=== PATIENT | female | born 1950 | race Caucasian/White ===

== ENCOUNTER → 2017-08-22 08:04 | Outpatient (CLI) | payer MEDICARE, OTHER, SELFPAY ==
[2017-08-22 08:09] LABS: Microscopic, Urine URINE MICROSCOPIC (MICROSCOPIC)
[2017-08-22 13:42] LABS: Basophils % 0.6 % (0.1-2.0); Eosinophils # 0.2 K/mm3 (0.0-0.4); Eosinophils % 4.9 % (0.1-12.0); Hematocrit 43.7 % (37.0-47.0); Hemoglobin 13.9 g/dL (12.2-16.2); Lymphocytes # 1.5 K/mm3 (0.7-4.5); Lymphocytes % 33.4 K/mm3 (10-50); Mean Corpuscular HGB Conc 31.8 g/dL (31.8-35.4); Mean Corpuscular Hemoglobin 31.9 pg (27.0-31.2); Mean Corpuscular Volume 100.2 fl (81-99); Mean Platelet Volume 8.4 fl (7.4-10.4); Monocytes # 0.3 K/mm3 (0.1-1.0); Monocytes % 6.1 % (1.7-9.3); Neutrophils # 2.4 K/mm3 (1.8-7.8); Neutrophils % 54.9 % (37.0-80.0); Platelet Count 259 K/mm3 (142-424); Red Blood Count 4.36 M/mm3 (4.20-5.40); Red Cell Distribution Width 12.9 % (11.5-17.5); White Blood Count 4.4 K/mm3 (4.8-10.8)
[2017-08-22 13:58] LABS: Appearance,Urine CLEAR (Clear); Bilirubin,Urine Negative (Negative); Blood, Urine Negative (Negative); Color,Urine YELLOW (Yellow); Glucose,Urine (UA) Negative (Negative); Ketones,Urine Negative (Negative); Leukocyte Esterase,Urine Negative (Negative); Nitrate,Urine Negative (Negative); PH,Urine 6.5 (5.0-8.5); Protein,Urine Negative (Negative); Specific Gravity, Urine <= 1.005 (1.005-1.030); Urobilinogen,Urine 0.2 EU/dl (0.2)
[2017-08-22 14:37] LABS: Alanine Aminotransferase 33 U/L (12-78); Albumin Level 3.8 gm/dL (3.4-5.0); Albumin/Globulin Ratio 1.2 (1.1-1.8); Alkaline Phosphatase 69 U/L (46-116); Anion Gap 13.6 mEq/L (5-15); Aspartate Amino Transferase 16 U/L (15-37); Bilirubin,Total 0.5 mg/dL (0.2-1.0); Blood Urea Nitrogen 11 mg/dL (7-18); Calcium 8.9 mg/dL (8.5-10.1); Carbon Dioxide 26 mmol/L (21.0-32.0); Chloride 101 mmol/L (98-107); Chol/HDL Ratio 2.1 (1-3.5); Cholesterol 228 mg/dL (140-200); Creatinine,Serum 0.71 mg/dL (0.55-1.02); Estimated Glomerular Filt Rate 82 ml/min (>60); GFR (African American) 100 ML/MIN (>60); Globulin 3.2 gm/dl (1.3-3.2); Glucose 87 mg/dL (74-106); HDL Cholesterol 108 mg/dL (29-89); LDL Cholesterol 109 mg/dL (0-130); Potassium 4.6 mmoL/L (3.5-5.1); Sodium 136 mmol/L (136-145); Thyroid Stimulating Hormone 1.65 uIU/ml (0.358-3.740); Triglycerides 54 mg/dL (30-200); VLDL Cholesterol 11 mg/dL (0-40)
[2017-08-22 15:09] LABS: Bacteria,Urine 1+ /lpf; RBC,Urine Occasional #/hpf (0-3); WBC,Urine Occasional #/hpf (0-3)
== END ==
PROVIDERS: PCP Family Medicine; Visit Provider Family Medicine
DX: I10 Essential (primary) hypertension (principal); R53.83 Other fatigue; E78.5 Hyperlipidemia, unspecified; R35.1 Nocturia
CPT/HCPCS: 36415; 80053; 80061; 81001; 84439; 84443; 85025

== ENCOUNTER → 2017-10-22 17:05 | Outpatient (CLI) | payer MEDICARE, OTHER, SELFPAY ==
--- NOTE | 2017-10-22 13:31 | MM_ITS ---
MM Dig SC mamm unilat RT CAD CAD Screening ORDERING PHYSICIAN : Abdifatah Hernadez MD PATIENT AGE: 67 years GENDER: Female COMPARISON: Previous mammograms: August 2016, 2015, July 2014, 2013, 2012, 2011. June 2010 INDICATION: Screening right mammogram. Left mastectomy May years ago. Uses est ring No new complaints. Noncontributory family history TECHNIQUE: Standard CC and MLO images right breast with additional axillary cc view and right MLO inferior breast for IMf image R2 CAD reviewed. --FINDINGS: RIGHT BREAST:---- Right breast there is a small 6 mm round density seen at the lateral retroareolar region ongoing over multiple years of studies seems to fluctuate from study to study of same area was present in 2013. As well as evident on 2011.. Thus this long-term presence, and lack of progression supporting benign nature and can be followed Remainder breast unremarkable. A few stable small axillary lymph nodes. Minimal vascular calcification IMPRESSION: No significant new findings. Follow-up in one year will be important and should be emphasized this patient Small smooth round 5X 6 mm density at the lateral/inferior retroareolar region again noted & stable since studies dating back to 2013, 2011. Can be followed given this long-term nature BI-RADS Category: 2 Benign Finding(s) RECOMMENDED FOLLOW-UP: 1YR - 1 YEAR FOLLOW-UP (A letter has been sent to the patient regarding results of the study.)
== END ==
PROVIDERS: Family Provider Family Medicine; PCP Family Medicine; Visit Provider Nurse Practitioner Obstetrics & Gynecology
DX: Z12.31 Encounter for screening mammogram for malignant neoplasm of breast (principal)
CPT/HCPCS: 77067

== ENCOUNTER → 2019-03-12 10:40 | Outpatient (CLI) | payer MEDICARE, OTHER, SELFPAY ==
--- NOTE | 2019-03-12 10:42 | MM_ITS ---
PROCEDURE: MM DIG SC MAMM UNILAT RT CAD CLINICAL INDICATION: h/o lt breast cancer, screening rt There has been a previous left mastectomy, patient has no current complaints involving the right breast COMPARISON: DMSUR DIG MAMM-SCREENING UNI-RT from 09/01/2015 DMSUR DIG MAMM-SCREEN UNI-RT W/CAD from 09/13/2016 SCUNIRT MM Dig SC mamm unilat RT CAD from 10/22/2017 TECHNIQUE: Standard CC and MLO images were obtained. R2 CAD reviewed. FINDINGS: Scattered fibroglandular densities are seen stable and basically unchanged from previous studies. There is mild arterial calcification as noted previously. There is a stable small round density just deep to the nipple right breast. There is no suspicious lesion and no suspicious microcalcifications. IMPRESSION: Stable exam with no suspicious lesions seen BI-RAD Category: 2 Benign Finding(s) FOLLOW-UP: 1YR 1 Year Follow-up (A letter has been sent to the patient regarding results of the study.) Dictated by: Dr. Anand Miller MD 03/16/2019 17:[address] Anand Miller MD in [place] 03/16/2019 17:35
== END ==
PROVIDERS: PCP Family Medicine; Visit Provider Nurse Practitioner Obstetrics & Gynecology
DX: Z12.31 Encounter for screening mammogram for malignant neoplasm of breast (principal); Z85.3 Personal history of malignant neoplasm of breast
CPT/HCPCS: 77067

== ENCOUNTER → 2019-04-14 10:05 | Outpatient (POV) | payer MEDICARE, OTHER, SELFPAY | PROVIDERS: Visit Provider Dermatology | DX: Z00.00 Encounter for general adult medical examination without abnormal findings (principal) ==

== ENCOUNTER → 2020-02-17 17:36 | Outpatient (CLI) | payer MEDICARE, OTHER, SELFPAY ==
[2020-02-19 13:14] LABS: Covid-19 Nasal PCR Sendout Lex NOT DETECTED
== END ==
PROVIDERS: PCP Family Medicine; Visit Provider Nurse Practitioner Family
DX: Z03.818 Encounter for observation for suspected exposure to other biological agents ruled out (principal)
CPT/HCPCS: U0004

== ENCOUNTER → 2020-03-14 08:16 | Outpatient (CLI) | payer MEDICARE, OTHER, SELFPAY ==
--- NOTE | 2020-03-14 08:16 | MM_ITS ---
PROCEDURE: MM DIG SC MAMM UNILAT RT CAD from 03/14/2020 US US BREAST RT COMPLETE from 03/14/2020 Referring Doctor: Abdifatah Hernadez Patient Age:69Y CLINICAL INDICATION: screening xmg in high risk patient Left mastectomy for left breast cancer No new complaints.; patient with est ring Family history sister with breast cancer COMPARISON: MG DMSUR DIG MAMM-SCREENING UNI-RT from 07/24/2013 MG DMSUR DIG MAMM-SCREENING UNI-RT from 08/10/2014 MG DMSUR DIG MAMM-SCREENING UNI-RT from 09/01/2015 MG DMSUR DIG MAMM-SCREEN UNI-RT W/CAD from 09/13/2016 MG SCUNIRT MM Dig SC mamm unilat RT CAD from 10/22/2017 MG MM DIG SC MAMM UNILAT RT CAD from 03/12/2019 US US BREAST RT COMPLETE from 03/14/2020 TECHNIQUE: Standard CC and MLO images were obtained. R2 CAD reviewed. Bilateral digital breast tomosynthesis included. FINDINGS: Today's right mammogram studies and right breast ultrasound are reviewed together: RIGHT MAMMOGRAM: On the mammogram images there is a round 7.5 mm well-marginated density retroareolar region, slightly lateralaspect retroareolar region. This corresponds with a benign appearing cyst on subsequent ultrasound which is been seen on previous studies No additional areas are seen elsewhere at the right breast. Remainder of the right breast appear stable RIGHT BREAST ULTRASOUND: With axillary survey 6.9 mm x 5.2 mm benign-appearing well-marginated cyst at 9-10 o'clock which would corresponds to the area seen on the mammogram images.. No areas of concern otherwise at the right breast. Benign-appearing axillary lymph nodes noted IMPRESSION: No new areas of significant concern right breast.. Small benign cyst retroareolar region Today's right breast ultrasound reveals a small cyst at the lateral retroareolar region which would correspond with round density lateral retroareolar region today's right mammogram this is seen on previous study Follow-up 1 year/February 2021 recommended and encouraged BI-RAD Category: 2 Benign Finding(s) FOLLOW-UP: 1YR 1 Year Follow-up (A letter has been sent to the patient regarding results of the study.) Dictated by: Toby Gregory MD 03/23/2020 09:50 Toby Gregory MD in [place] 03/23/2020 09:50
== END ==
PROVIDERS: PCP Family Medicine; Visit Provider Nurse Practitioner Obstetrics & Gynecology
DX: Z12.31 Encounter for screening mammogram for malignant neoplasm of breast (principal); Z85.3 Personal history of malignant neoplasm of breast
CPT/HCPCS: 76641; 77063; 77067

== ENCOUNTER 2020-04-13 09:47 | Emergency (ER) | payer MEDICARE, OTHER, SELFPAY ==
--- NOTE | 2020-04-13 09:50 | HMH.EDUTC ---
[facility] [place] Disposition Clinical Impression: Exposure to COVID-19 virus Disposition: Home, Self-Care Condition on Discharge: Good Instructions: Preventing the Spread of Coronavirus Discharge Instructions Additional Instructions: Drink plenty of fluids. Take tylenol for pain or fever. Follow up with your regular doctor. GO TO THE ER FOR ANY WORSENING SYMPTOMS Referrals: Jason Ferrer [Primary Care Provider] - Time of Disposition: 10:07 Medical Decision Making - Medical Records Medical records reviewed: No: I reviewed the patient's medical records. - Erwin Inquiry Pt receiving controlled substance: No Vital Signs: 04/13/20 09:58 04/13/20 10:08 Temperature 97.7 F 97.7 F Temperature Source Oral Pulse Rate 72 Pulse Rate [Right Brachial] 72 Respiratory Rate 21 21 Blood Pressure 138/92 H Blood Pressure [Right Arm] 138/92 H Blood Pressure Mean [Right Arm] 107 Blood Pressure Source [Right Arm] Automatic Cuff Blood Pressure Position [Right Arm] Sitting 02 Sat by Pulse Oximetry 97 Oxygen Delivery Method Room Air [facility] [place] HPI - General Stated complaint: wants tanikaid test Time Seen by Provider: 04/13/20 09:50 - History of Present Illness Provider Complaint: She states that she traveled to see her sister and got home yesterday. She has been having a mild headache. She denies any other symptoms. - Related Data Home Medications Medication Instructions Recorded Confirmed Losartan Potassium [Cozaar 100mg 100 mg PO DAILY 04/13/20 04/13/20 Tablets] Allergies Allergy/AdvReac Type Severity Reaction Status Date / Time amoxicillin [From Augmentin] Allergy Verified 04/13/20 10:03 clarithromycin Allergy Verified 04/13/20 10:03 clavulanic acid Allergy Verified 04/13/20 10:03 [From Augmentin] Penicillins Allergy Verified 04/13/20 10:03 [facility] History - Hepatitis A Screen Attestation statement:: This patient has been screened for Hepatitis A risk factors. I have reviewed the patient's past medical history: Yes Medical History: Reports:: Hypertension Laterality Cases: Left: Mastectomy Other Surgeries: Yes: Appendectomy Amputation: No Fractures: No Comment: thumb joints replace on both hands - Social History Smoking Status: Never smoker Alcohol Intake: current Alcohol Intake Frequency:: holidays/special occasions only Substance Use Type: denies use Occupational Status: retired Comment: [employer], [employer] ROS Obtained: Yes All systems reviewed & no additional complaints - Constitutional Constitutional: Denies chills, Denies fever(s) - Eyes Eyes: Denies blurry vision, Denies eye discharge - ENT Ears, Nose, Mouth, and Throat: Denies dizziness, Denies otalgia, Denies sore throat - Cardiovascular Cardiovascular: Denies chest pain - Respiratory Respiratory: No chest congestion, No cough - Gastrointestinal Gastrointestingal: Denies: abdominal pain, diarrhea, nausea, vomiting Physical Exam - General General appearance: alert, in no apparent distress - Head Head exam: atraumatic, normocephalic, normal inspection - Eye Eye exam: Present: normal appearance, PERRL, EOMI - ENT ENT exam: Present: normal exam, normal oropharynx, mucous membranes moist, TM's normal bilaterally, normal external ear exam - Neck Neck exam: Present: normal inspection, full ROM, trachea midline. Absent: meningismus, lymphadenopathy - Chest Chest inspection: Present: normal inspection, symmetric chest wall rise. Absent: tenderness - Respiratory Respiratory exam: Present: normal lung sounds bilaterally. Absent: respiratory distress - Cardiovascular Cardiovascular exam: Present: regular rate, normal rhythm. Absent: JVD - Abdominal Exam Abdominal exam: Present: soft, normal bowel sounds. Absent: distention, tenderness, guarding - Extremities Exam Extremities exam: Present: normal inspection, full ROM, normal capillary refill. Absent: calf tenderness - Back Exa
[2020-04-13 09:58] VITALS: BP 138/92; PULSE 72; RESP 21; TEMP 36.5; O2SAT 97; BMI 25.6
[2020-04-13 10:08] VITALS: BP 138/92; PULSE 72; RESP 21; TEMP 36.5; O2SAT 97
[2020-04-13 19:45] LABS: Covid-19 Nasal PCR Sendout Lex NOT DETECTED
== END 2020-04-13 10:10 | disposition home or self-care (01) ==
PROVIDERS: Emergency Provider Nurse Practitioner Family; PCP Family Medicine
DX: Z20.828 Contact with and (suspected) exposure to other viral communicable diseases (principal)
CPT/HCPCS: 99201; U0004

== ENCOUNTER 2020-04-22 09:36 | Emergency (ER) | payer MEDICARE, OTHER, SELFPAY ==
[2020-04-22 09:45] VITALS: BP 154/94; PULSE 62; RESP 19; TEMP 36.7; O2SAT 98; BMI 25.6
--- NOTE | 2020-04-22 10:14 | HMH.EDUTC ---
[facility] [place] Clinical Impression: Exposure to COVID-19 virus, Viral syndrome Disposition: Home, Self-Care Condition on Discharge: Good Instructions: DI for Viral Syndrome, Preventing the Spread of Coronavirus Discharge Instructions Additional Instructions: Drink plenty of fluids. Take tylenol for pain or fever. Take the medications as directed. Follow up with your regular doctor. GO TO THE ER FOR ANY WORSENING SYMPTOMS Prescriptions: Azithromycin [Z-Surya 250mg Tab*] 250 mg PO UD DOSE PK #6 tab Transmission Status: Received by [facility] Referrals: Jason Ferrer [Primary Care Provider] - Time of Disposition: 10:22 Medical Decision Making - Medical Records Medical records reviewed: No: I reviewed the patient's medical records. - Erwin Inquiry Pt receiving controlled substance: No Vital Signs: 04/22/20 09:45 04/22/20 10:28 Temperature 98.0 F 98.0 F Temperature Source Oral Pulse Rate 62 Pulse Rate [Right Brachial] 62 Respiratory Rate 19 19 Blood Pressure 154/94 H Blood Pressure [Right Arm] 154/94 H Blood Pressure Mean [Right Arm] 114 Blood Pressure Source [Right Arm] Automatic Cuff Blood Pressure Position [Right Arm] Sitting 02 Sat by Pulse Oximetry 98 Oxygen Delivery Method Room Air Orders (Tests/Meds): ORDERS Category Date Time Status Covid-19 Nasal PCR Sendout [place] Stat Lab 04/22/20 09:50 Received [facility] [place] - General Stated complaint: covid exposure, symptomatic Time Seen by Provider: 04/22/20 09:50 Mode of Arrival: Ambulatory Source of Information: Patient Limitations: No Limitations Description of Symptoms (Recalled from Triage Doc. by RN): PATIENT REQUESTING COVID TEST D/T EXPOSURE; C/O COUGH AND SOA X 2 DAYS HEENT Symptoms (Recalled from RN notes): No Resp Symptoms (Recalled from RN notes): Yes Skin Symptoms (Recalled from RN notes): No MS Symptoms (Recalled from RN notes): No Functional Status (Recalled from RN notes): WNL - History of Present Illness Provider Complaint: She c/o this being the 2nd day that she has felt bad. Her partner was tested for covid and it came back positive yesterday. She has been chilling, running a temp up to just above 99, loss of appetite and a general feeling of malaise. - Related Data Home Medications Medication Instructions Recorded Confirmed Losartan Potassium [Cozaar 100mg 100 mg PO DAILY 04/13/20 04/22/20 Tablets] Previous Rx's Medication Instructions Recorded Azithromycin [Z-Surya 250mg Tab*] 250 mg PO UD DOSE PK #6 tab 04/22/20 Allergies Allergy/AdvReac Type Severity Reaction Status Date / Time amoxicillin [From Augmentin] Allergy Verified 04/13/20 10:03 clarithromycin Allergy Verified 04/13/20 10:03 clavulanic acid Allergy Verified 04/13/20 10:03 [From Augmentin] Penicillins Allergy Verified 04/13/20 10:03 - Worker's Comp Is this a Worker's Comp case?: No H History - Hepatitis A Screen Drug use history?: No High risk sexual behaviors?: No History of sexually transmitted infection?: No Currently employed?: No Childcare worker?: No Do you have indoor plumbing?: Yes Do you have electricity?: Yes Attestation statement:: This patient has been screened for Hepatitis A risk factors. I have reviewed the patient's past medical history: Yes Medical History: Reports:: Hypertension Laterality Cases: Left: Mastectomy Other Surgeries: Yes: Appendectomy Amputation: No Fractures: No Comment: thumb joints replace on both hands - Social History Smoking Status: Never smoker Alcohol Intake: never Alcohol Intake Frequency:: holidays/special occasions only Substance Use Type: denies use Occupational Status: other Comment: [employer], [employer] ROS Obtained: Yes All systems reviewed & no additional complaints - Constitutional Constitutional: Reports chills, Reports fever(s), Reports poor appetite, Reports malaise - Eyes Eyes: Denies eye discharge - ENT E
[2020-04-22 10:28] VITALS: BP 154/94; PULSE 62; RESP 19; TEMP 36.7; O2SAT 98
[2020-04-23 15:52] LABS: Covid-19 Nasal PCR Sendout Lex Positive
--- NOTE | 2020-04-23 16:01 | PC.NURSE ---
Pt called 04/23/2020 at 1555 and given Covid-19 results. Positive.
== END 2020-04-22 10:30 | disposition home or self-care (01) ==
PROVIDERS: Emergency Provider Nurse Practitioner Family; PCP Family Medicine
DX: U07.1 COVID-19 (principal)
CPT/HCPCS: G0463; 99201; U0004

== ENCOUNTER → 2021-01-31 10:27 | Outpatient (CLI) | payer MEDICARE, OTHER, SELFPAY | PROVIDERS: Visit Provider Family Medicine | DX: Z11.9 Encounter for screening for infectious and parasitic diseases, unspecified (principal) | CPT/HCPCS: 36415; 86618 ==

== ENCOUNTER → 2021-03-21 10:19 | Outpatient (CLI) | payer MEDICARE, OTHER, SELFPAY ==
--- NOTE | 2021-03-21 10:19 | MM_ITS ---
PROCEDURE: MM DIG SC MAMM UNILAT RT CAD Digital Breast Tomosynthesis Included CLINICAL INDICATION: screening mammogram/ h/o lt breast cancer COMPARISON: MG SCUNIRT MM Dig SC mamm unilat RT CAD from 10/22/2017 MG MM DIG SC MAMM UNILAT RT CAD from 03/12/2019 US BREAST RT COMPLETE from 03/14/2020 MG MM DIG SC MAMM UNILAT RT CAD from 03/14/2020 TECHNIQUE: Standard CC and MLO images and 3D Tomosynthesis was obtained. R2 CAD reviewed. FINDINGS: There are scattered areas of fibroglandular density The patient has had prior left mastectomy. There are benign-appearing calcifications of the right breast. A well-circumscribed 8 mm nodule is present in the retroareolar region which is not significantly changed which was confirmed to be a cyst on a previous ultrasound. There is a small nodule along the anterior aspect of this cyst measuring approximately 2 mm and is also not significantly changed. No suspicious appearing mass, malignant-appearing microcalcification, architectural distortion, or skin thickening. IMPRESSION: Benign findings. No change with no evidence of malignancy. BI-RAD Category: 2 Benign Finding FOLLOW-UP: 1 YR 1 Year Follow-up (A letter has been sent to the patient regarding results of the study.) Dictated by: Jarvis Calderón MD 03/31/2021 11:27 Jarvis Calderón MD in [place] 03/31/2021 11:27
== END ==
PROVIDERS: PCP Family Medicine; Visit Provider Obstetrics & Gynecology
DX: Z12.31 Encounter for screening mammogram for malignant neoplasm of breast (principal)
CPT/HCPCS: 77063; 77067

== ENCOUNTER → 2021-11-07 09:59 | Outpatient (POV) | payer MEDICARE, OTHER, SELFPAY | PROVIDERS: Visit Provider Dermatology | DX: Z00.00 Encounter for general adult medical examination without abnormal findings (principal) ==

== ENCOUNTER 2021-12-23 10:07 | Emergency (ER) | payer MEDICARE, OTHER, SELFPAY ==
[2021-12-23 11:15] VITALS: BP 164/86; PULSE 65; RESP 18; TEMP 37.2; O2SAT 98; BMI 26.8
--- NOTE | 2021-12-23 11:30 | HMH.EDUTC ---
[facility] [place]ression: Sinusitis Qualifiers: Sinusitis location: maxillary Chronicity: acute Recurrence: non-recurrent Qualified Code(s): J01.00 - Acute maxillary sinusitis, unspecified Conjunctivitis Qualifiers: Conjunctivitis type: acute Acute conjunctivitis type: bacterial Laterality: bilateral Qualified Code(s): H10.33 - Unspecified acute conjunctivitis, bilateral Disposition: Home, Self-Care Condition on Discharge: Good Instructions: DI for Conjunctivitis Additional Instructions: Take all meds as prescribed until gone Follow up with PCP if not improving Prescriptions: Ofloxacin [Ocuflox 0.3% OPHTH drops 5mL] 1 drp OP DIRECTED 7 Days #1 ml Transmission Status: [facility]ending [facility] Cefdinir [Omnicef 300mg Capsule] 300 mg PO BID #20 cap Transmission Status: Pending to [facility] Referrals: Jason Ferrer [Primary Care Provider] - Time of Disposition: 11:47 Medical Decision Making - Erwin Inquiry Pt receiving controlled substance: No Vital Signs: 12/23/21 11:15 Temperature 99.0 F Temperature Source Oral Pulse Rate [Right Brachial] 65 Respiratory Rate 18 Blood Pressure [Right Arm] 164/86 H Blood Pressure Mean [Right Arm] 112 Blood Pressure Source [Right Arm] Automatic Cuff Blood Pressure Position [Right Arm] Sitting 02 Sat by Pulse Oximetry 98 Oxygen Delivery Method Room Air - Lab Data Lab results reviewed: Yes: I reviewed the patient's lab results. Orders (Tests/Meds): ORDERS Category Date Time Status Strep Scrn Group A (Rapid) Stat Lab 12/23/21 11:20 [place] [facility] [place] - General Stated complaint: eye drainage, redness Time Seen by Provider: 12/23/21 11:30 Mode of Arrival: Ambulatory Source of Information: Patient Limitations: No Limitations Description of Symptoms (Recalled from Triage Doc. by RN): PATIENT C/O REDNESS AND DRAINAGE TO BILATERAL EYES, SORE THORAT, AND HEADACHE X 2 DAYS HEENT Symptoms (Recalled from RN notes): Yes Resp Symptoms (Recalled from RN notes): No Skin Symptoms (Recalled from RN notes): No MS Symptoms (Recalled from RN notes): No Functional Status (Recalled from RN notes): WNL - History of Present Illness Provider Complaint: Sore throat, headache, redness to bilateral eyes X 3-4 days. Low grade fever. Eyes have been irritated, draining. No pain or blurry vision. Mild rhinorhea. No cough. No vomiting or diarrhea. No rash. COVID test negative. Onset (ago): day(s) (4) Location: head, face Severity: moderate Consistency: constant Relieving factors: none Exacerbating factors: none Associated symptoms: headaches Treatments prior to arrival: none - Related Data Home Medications Medication Instructions Recorded Confirmed Losartan Potassium [Cozaar 100mg 100 mg PO DAILY 04/13/20 03/31/21 Tablets] Previous Rx's Medication Instructions Recorded Cefdinir [Omnicef 300mg Capsule] 300 mg PO BID #20 cap 12/23/21 Ofloxacin [Ocuflox 0.3% OPHTH 1 drp OP DIRECTED 7 Days #1 ml 12/23/21 drops 5mL] Allergies Allergy/AdvReac Type Severity Reaction Status Date / Time amoxicillin [From Augmentin] Allergy Verified 03/31/21 11:09 clarithromycin Allergy Verified 03/31/21 11:09 clavulanic acid Allergy Verified 03/31/21 11:09 [From Augmentin] Penicillins Allergy Verified 03/31/21 11:09 - Worker's Comp Is this a Worker's Comp case?: No [facility] History - Hepatitis A Screen Attestation statement:: This patient has been screened for Hepatitis A risk factors. I have reviewed the patient's past medical history: Yes Medical History: Reports:: Hypertension Laterality Cases: Left: Mastectomy Other Surgeries: Yes: Appendectomy Amputation: No Fractures: No Comment: thumb joints replace on both hands - Social History Smoking Status: Never smoker Alcohol Intake: never Alcohol Intake Frequency:: holidays/special occasions only Substance Use Type: denies use Occupational Status: ot
[2021-12-23 11:55] VITALS: BP 164/86; PULSE 65; RESP 18; TEMP 37.2; O2SAT 98
[2021-12-23 11:59] LABS: Strep Scrn Group A (Rapid) Negative (Negative)
== END 2021-12-23 11:58 | disposition home or self-care (01) ==
PROVIDERS: Emergency Provider Physician Assistant; PCP Family Medicine
DX: J01.01 Acute recurrent maxillary sinusitis (principal); H10.33 Unspecified acute conjunctivitis, bilateral; R07.0 Pain in throat; R51.9 Headache, unspecified; R50.9 Fever, unspecified; H53.143 Visual discomfort, bilateral; R09.81 Nasal congestion; H57.89 Other specified disorders of eye and adnexa; Z85.3 Personal history of malignant neoplasm of breast; I10 Essential (primary) hypertension
CPT/HCPCS: 87430; 99212; G0463

== ENCOUNTER → 2022-04-03 10:38 | Outpatient (CLI) | payer MEDICARE, OTHER, SELFPAY ==
--- NOTE | 2022-04-03 10:38 | MM_ITS ---
PROCEDURE INFORMATION: Exam: MG Right Screening 3D Mammography Exam date and time: 04/03/2022 10:46 AM Age: 71 years old Clinical indication: Screening. Personal history of left breast cancer, status post mastectomy with reconstruction. TECHNIQUE: Imaging protocol: Right Screening tomosynthesis and 2D mammography including computer-aided detection (CAD) when performed. COMPARISON: 1. MG MM DIG SC MAMM UNILAT RT CAD 03/21/2021 10:21 AM 2. MG MM DIG SC MAMM UNILAT RT CAD 03/14/2020 8:28 AM 3. MG MM DIG SC MAMM UNILAT RT CAD 03/12/2019 10:57 AM 4. MG SCUNIRT MM Dig SC mamm unilat RT CAD 10/22/2017 5:17 PM FINDINGS: MAMMOGRAPHY: Breast composition: There are scattered areas of fibroglandular density. Mass: No suspicious mass Architectural distortion: None. Calcifications: No suspicious calcifications. Asymmetric density: None. Skin thickening: None. Axillary adenopathy: None. IMPRESSION: No mammographic evidence of malignancy. Annual screening is recommended unless otherwise clinically indicated. ASSESSMENT: BI-RADS Category 1: Negative
== END ==
PROVIDERS: PCP Family Medicine; Visit Provider Obstetrics & Gynecology
DX: Z12.31 Encounter for screening mammogram for malignant neoplasm of breast (principal)
CPT/HCPCS: 77063; 77067

== ENCOUNTER 2024-08-05 15:34 | Outpatient (CLI) | payer MEDICARE, OTHER, SELFPAY ==
--- NOTE | 2024-08-05 15:37 | MM_ITS ---
PROCEDURE INFORMATION: Exam: MG Right Screening 3D Mammography Exam date and time: 08/05/2024 3:44 PM Age: 74 years old Clinical indication: Screening mammogram TECHNIQUE: Imaging protocol: Right Screening tomosynthesis and 2D mammography including computer-aided detection (CAD) when performed. COMPARISON: 1. MG MM DIG SC MAMM UNILAT RT CAD 04/03/2022 10:46 AM 2. MG MM DIG SC MAMM UNILAT RT CAD 03/21/2021 10:21 AM 3. MG MM DIG SC MAMM UNILAT RT CAD 03/14/2020 8:28 AM 4. MG MM DIG SC MAMM UNILAT RT CAD 03/12/2019 10:57 AM FINDINGS: MAMMOGRAPHY: Breast composition: There are scattered areas of fibroglandular density. Mass: Stable benign-appearing nodule is present in the right breast. No new or morphologically suspicious nodule has developed to suggest malignancy. Architectural distortion: No new or suspicious architectural distortion. Calcifications: No new or suspicious calcifications are present Asymmetric density: No new or suspicious asymmetric density is present Skin thickening: None. Axillary adenopathy: None. IMPRESSION: No mammographic evidence of malignancy. Recommend annual screening mammography unless otherwise clinically indicated. ASSESSMENT: BI-RADS category 2: Benign.
== END 2024-08-05 23:59 | disposition home or self-care (01) ==
LOC: RAD 15:35
PROVIDERS: PCP Family Medicine; Visit Provider Internal Medicine
DX: Z12.31 Encounter for screening mammogram for malignant neoplasm of breast (principal); Z85.3 Personal history of malignant neoplasm of breast
CPT/HCPCS: 77063; 77067

== ENCOUNTER 2025-06-11 13:00 | Outpatient (CLI) | payer MEDICARE, OTHER, SELFPAY ==
--- NOTE | 2025-06-11 13:03 | XR_ITS ---
FINAL REPORT TECHNIQUE: 2 view chest CLINICAL HISTORY: chest congestion COMPARISON: None FINDINGS: CHEST 2 VIEWS No acute pulmonary density is evident. There is no evidence of effusion or other pleural disease. The mediastinum has a normal appearance. The cardiac silhouette is unremarkable. IMPRESSION: Unremarkable chest exam. Reviewed, Interpreted and Dictated by Miguel Angel Ayoub MD Transcribed by Valentina Osorio Authenticated and [facility]
--- OUTSIDE RECORDS SUMMARY | 2025-06-11 13:04 | XMS_ITS | Clinical Summary ---
Author Organization [facility] Address [address] [place] [address] Care Team Providers Care Enthone Solder Stripper Name Role Phone Kayden Ferrer MD Primary Care Provider [phone] Allergies Active Allergy Reactions Criticality Noted Date Comments Amoxicillin-Pot Clavulanate 12/15/19 17 BP drop, Flushing Clarithromycin 12/14/2016 Sick to stomach Clavulanic Acid Hives 04/03/2022 Penicillins Hives 04/03/2022 Medications Calcium Carb-Cholecalcif liane (CALCIUM+D3 PO) Take 1 tablet by mouth Daily. Active [place] 3-6-9 Fatty Acids (OMEGA-3-6-9 PO) Take 1 tablet by mouth Daily. Active amLODIPine (NORVASC) 5 MG tablet Take 1 tablet by mouth Daily. 90 tablet 3 5 Active albuterol sulfate HFA 108 (90 Base) MCG/ACT inhalerIndicatio ns:Mild intermittent asthma without complication Inhale 2 puffs Every 4 (Four) Hours As Needed for Shortness of Air or Wheezing. 18 g 1 5 Active triamcinolone (KENALOG) 0.1 % creamIndications :Pruritic dermatosis of scalp Apply 1 Application topically to the appropriate area as directed 2 (Two) Times a Day. 60 g 1 5 Active losartan (COZAAR) 100 MG tablet Take 1 tablet once a day for blood pressure 90 tablet 1 5 Active Active Problems Problem Noted Date Diagnosed Date Medicare annual wellness visit, subsequent 11/17 Assessment & Plan (11/17/2024 12:16 PM EDT): Subcutaneous nodule 11/17/2024 Assessment & Plan (11/17/2024 12:16 PM EDT): Nonspecific 1 cm mobile nontender subcutaneous nodule in her left occiput with some overlying pruritus. Likely represents small lipoma or possibly sebaceous cyst. Observation recommended unless becomes enlarged. Pruritic dermatosis of scalp 11/17/2024 Assessment & Plan (11/17/2024 12:16 PM EDT): Subjective pruritus overlying the subcutaneous nodule left occiput, with no obvious rash noted. Treat with triamcinolone cream on a trial basis. Advised if not responding Orders: triamcinolone (KENALOG) 0.1 % cream; Apply 1 Application topically to the appropriate area as directed 2 (Two) Times a Day. Upper respiratory tract infection 10/01/2024 Assessment & Plan (10/01/2024 5:41 PM EDT): Nonspecific URI, likely viral in nature, but given symptoms present for over a week now with no significant benefit, will treat with azithromycin (previous tolerance of this antibiotic, noting allergy to clarithromycin simply causing nausea) to address potential secondary infection with atypical bacterial pathogens. Symptomatic treat with Bromfed-DM, and also given some mild airway obstruction on exam, treat with an albuterol inhaler. Advise if symptoms not improving over the next 5 to 7 days or for any acute worsening of symptoms in the interim, noting very clinically stable at time of office discharge Mild intermittent asthma without complication Assessment & Plan (10/01/2024 5:41 PM EDT): Patient with greater than 1 week of lingering upper respiratory infection, initially likely viral in etiology, though given lingering symptoms potential for secondary atypical bacterial infection for which she is being treated with azithromycin (previous tolerance of this antibiotic, noting allergy to clarithromycin simply causing nausea). She does have objective evidence of decreased airflow though no meche wheezing or rhonchi. Treating with Bromfed-DM along with albuterol inhaler, proper dosing technique demonstrated. If she develops any meche wheezing we will then consider initiation of prednisone. Advised if symptoms not resolving with treatment or for any acute worsening of symptoms in the interim. Colon cancer screening 02/05/2024 Overview (02/05/2024): Colonoscopy 04/[address] Sparrow, 5-year follow-up recommended Assessment & Plan (02/05/2024 2:07 PM EDT): Colonoscopy in 04/[address] Sparrow, 5-year follow-up recommended. Patient several months ago given referral for repeat colonoscopy, but Dr. Sparrow is currently unavailable for consultation. Will refer locally to Dr. Marcio Chinchilla for this procedure. Nocturnal leg cramps 02/05/2024 Assessment & Plan (11/17/2024 12:16 PM EDT): Improvement in nocturnal leg cramps using B complex vitamin. Continue hydration and stretching additionally. Assessment & Plan (02/05/2024 2:10 PM EDT): Describes approximately 6 weeks of intermittent nocturnal leg cramps bilaterally, more distally. Etiology uncertain. She is very physically active at her baseline. Normal examination. Discussed treatment techniques including hydration, massage, warm baths before bedtime, stretching, and may initiate trial of complex vitamin, magnesium supplement, and/or vitamin D supplementation. Advise if not helping. Screening for diabetes mellitus 09/24/2023 Assessment & Plan (11/17/2024 12:16 PM EDT): Orders: Hemoglobin A1c; Future Need for hepatitis C screening test 09/24/2023 Encounter for general adult medical examination with abnormal findings 09/24/2023 Assessment & Plan (11/17/2024 12:16 PM EDT): 74-year-old female presenting for complete physical and Medicare wellness visit, specific health issues being addressed as detailed below, health maintenance includes right mammogram screening current from 08/05/2024 (status post left mastectomy for breast cancer), remote Pap smear status post MENDOZA/BSO in 2003 for benign menometrorrhagia, colonoscopy 05/06/2024 revealing diverticulosis only with 5- year follow-up recommended given family history of colorectal cancer, patient to check into status of prior Shingrix Tdap and COVID-19 vaccine, EKG today revealing stable inferior T wave abnormality, updating screening labs. Tentative follow-up in 1 year for another Medicare wellness visit and complete physical, and as needed in the interim. Orders: TSH Rfx On Abnormal To Free T4; Future Comprehensive Metabolic Panel; Future Lipid Panel; Future Hemoglobin A1c; Future Vitamin D,25-Hydroxy; Future UA / M With / Rflx Culture([facility] ONLY) - Urine, Clean Catch; Future Assessment & Plan (09/24/2023 7:18 PM EDT): Pleasant 73-year-old female presenting for a complete physical and Medicare wellness visit, overall in very good health with specific issues as being dressed below, health maintenance includes need for 5-year colonoscopy correlating to 04/[address] Sparrow, right mammogram screen normal from 03/2023, status post previous left breast cancer with breast reconstruction, DEXA scan from 03/2023 revealing mild osteopenia with recommendation to repeat in 2 years, patient declines Tdap given lack of insurance coverage, indicates she has had Shingrix vaccine series through [facility] that we will confirm, recommended to update COVID-19 vaccine and flu vaccines per recommendations. Vitamin D deficiency 09/24/2023 Assessment & Plan (11/17/2024 12:16 PM EDT): Taking vitamin D and her calcium supplement. Update level. Orders: Vitamin D,25-Hydroxy; Future Family history of colon cancer 09/24/2023 Overview (09/24/2023): Colonoscopy 04/[address] Sparrow, 5-year follow-up recommended correlating to 04/2024. Assessment & Plan (11/17/2024 12:16 PM EDT): Assessment & Plan (09/24/2023 7:16 PM EDT): Colonoscopy 04/[address] Sparrow, 5-year follow-up recommended correlating to 04/2024. Chronic bilateral low back pain without sciatica 09/24/2023 Assessment & Plan (09/24/2023 7:19 PM EDT): Describes intermittent low back pain without significant sciatica. Use ibuprofen or equivalent. 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 Assessment & Plan (09/24/2023 7:19 PM EDT): Several months of persistent left midfoot pain dorsally rating to the arch. Using power step orthotic inserts. No specific trauma. Obtain left foot x-ray series and make further recommendation based upon findings, possibly orthopedic or podiatry referral. Acute pain of right shoulder 09/24/2023 Assessment & Plan (09/24/2023 7:20 PM EDT): 2 episodes of rather sharp significant right shoulder pain, very fleeting, occurring over the last month most recently about 2 weeks ago. Has a completely normal examination today. Suspect likely some rotator cuff impingement transiently. Will observe for now and if becomes more problematic then obtain x-ray and refer to orthopedic surgery. Screening for thyroid disorder 09/24/2023 Assessment & Plan (11/17/2024 12:16 PM EDT): Orders: TSH Rfx On Abnormal To Free T4; Future Neuropathy of both feet 09/24/2023 Assessment & Plan (11/17/2024 12:16 PM EDT): Ill-defined sensory neuropathy in her distal lower extremities, present for 20 years on the left and 5 years in the right, recent negative basic workup for metabolic etiology. Unlikely related to compressive neuropathy. I did offer patient consultation with neurologist but assuming symptoms stay stable, she wishes to hold off. Assessment & Plan (02/05/2024 2:09 PM EDT): Sensory neuropathy noted on both distal forelegs and most prominently involving her feet, present by history 15 years with objective recent progression proximately etiology uncertain, most recently in 09/2023 having had standard metabolic screening that was unremarkable including TSH hemoglobin A1c B12 and folic acid. Examination consistent with a sensory neuropathy subjectively. No motor abnormalities. Discussed option of neurology consultation versus observation. She prefers observation for now. Advise if would like to proceed with neurology consultation at some point. Assessment & Plan (09/24/2023 7:27 PM EDT): Sensory neuropathy noted on both distal forelegs and feet, present by history 15 years with no major change, etiology uncertain, will obtain standard screening for metabolic disorder including hemoglobin A1c, TSH, B1, B12 and folic acid. Consider neurology consultation certainly if progresses. Screen for colon cancer 09/24/2023 Overview (09/24/2023): Colonoscopy from 04/[address] Sparrow, 5-year follow-up colonoscopy recommended correlating to 04/2024 given history of personal polyps and family history of colon cancer Assessment & Plan (09/24/2023 7:17 PM EDT): Colonoscopy from 04/[address] Sparrow, 5-year follow-up colonoscopy recommended correlating to 04/2024 given history of personal polyps and family history of colon cancer Family history of brain cancer 04/12/2023 Family history of breast cancer in first degree relative 04/12/2023 Family history of prostate cancer 04/12/2023 History of hysterectomy 04/12/2023 Assessment & Plan (11/17/2024 12:16 PM EDT): Status post MENDOZA/BSO in 2003 secondary to menometrorrhagia. No further indication for Pap smears. Assessment & Plan (09/24/2023 7:17 PM EDT): Remote MENDOZA/BSO for benign disease. Does not require Pap smears. History of malignant neoplasm of breast 04/12/20 Assessment & Plan (11/17/2024 12:16 PM EDT): History of left breast cancer 2002 with mastectomy and subsequent reconstruction. Most recent screening right mammogram stable from 08/05/2024 Assessment & Plan (09/24/2023 7:19 PM EDT): History of left breast cancer 2002 with subsequent reconstructive surgery. Right breast cancer mammogram screen normal from 03/2023. Vaginal atrophy 04/12/2023 Dyslipidemia 04/12/2023 Assessment & Plan (11/17/2024 12:16 PM EDT): Lipid profile from 10/05/2023 revealed mild elevation of her LDL with HDL, overall calculated 10-year risk of cardiovascular disease 7%, with conservative monitoring having been pursued. Will update lipid profile, pursuing healthy lifestyle. Orders: Lipid Panel; Future Overweight (BMI 25.0-29.9) 04/12/2023 Assessment & Plan (11/17/2024 12:16 PM EDT): Mildly elevated BMI. Patient pursues a healthy lifestyle with diet and exercise. Continue same. Assessment & Plan (09/24/2023 7:15 PM EDT): Patient had requested specifically consideration to be initiated on GLP-1 agonist. She really has overall a low risk profile, and given her weight is just mildly elevated at 27.2, I do not feel that a GLP-1 agonist at this time will be indicated. She admits that she has room for improvement regarding diet and will continue her physical activity efforts. Advise if not improving. History of colon polyps 04/12/2023 Overview (09/24/2023): Colonoscopy from 01/[address] Sparrow, 5-year surveillance colonoscopy to be performed in 04/2024. Assessment & Plan (11/17/2024 12:16 PM EDT): Prior colon polyps, most recent colonoscopy 04/2024 revealing diverticulosis only, 5-year follow-up recommended based on history of colorectal cancer in patient's sister. Influenza vaccination administered at current vi sit 04/12/2023 Encounter for screening mamm ogram for malignant neoplasm of breast 04/12/2023 Abnormal EKG 10/27/2020 Assessment & Plan (11/17/2024 12:16 PM EDT): Chronically abnormal EKG with inferior T wave inversion, EKG today stable versus last on 04/12/2023. Reports normal stress testing approximately 10 years prior, echocardiogram in 2020 revealing mild concentric LVH, mild MR, EF 65%, followed previously by Dr. Luisa Whitney of cardiology, not currently seeing cardiology, no current symptoms being physically active. Very likely benign variant. Observation recommended Orders: ECG 12 Lead Assessment & Plan (09/24/2023 7:14 PM EDT): History of chronic T wave abnormality inferolaterally on EKG tracing, echocardiogram essentially unremarkable, followed by Dr. Luisa Whitney, completely asymptomatic with regular significant physical activity, likely normal variant. EKG today was not repeated but reviewed most recently from 01/2023, and previously from 10/2020. Advise if develops any cardiopulmonary symptoms. Essential hypertension 03/28/2017 Assessment & Plan (11/17/2024 12:16 PM EDT): Very satisfactory blood pressure control acutely as well as chronically taking amlodipine 5 mg daily and losartan 100 mg daily. Continue current regimen monitoring blood pressures at least once or twice monthly with ideal parameters discussed Orders: Comprehensive Metabolic Panel; Future UA / M With / Rflx Culture([facility] ONLY) - Urine, Clean Catch; Future ECG 12 Lead Assessment & Plan (02/05/2024 2:10 PM EDT): Very satisfactory blood pressure control today noted taking amlodipine 5 mg daily and losartan 100 mg daily. Continue current regimen. Assessment & Plan (09/24/2023 7:13 PM EDT): Very satisfactory blood pressure control acutely as well as chronically taking Adipine 5 mg daily and losartan 100 mg daily. Continue current regimen with monitoring, continue healthy lifestyle with diet and exercise. Abnormal echocardiogram 12/14/2016 Overview (09/24/2023): Echocardiogram 11/16/2020 revealing EF 72%, mild concentric LVH, mild MR, mild TR with normal pulmonary pressure Resolved Problems Problem Noted Date Diagnosed Date Resolved Date Neuropathy 02/05/2024 02/05/2024 Hypertension, benign 12/14/2016 023 Encounters Date Type Department Care Team Description 06/11/2025 Telephone [facility] [address] [place] [address] [place] [address] Kayden Ferrer MD from Last 3 Months Immunizations Immunization Administration Dates Next Due Arexvy (RSV, Adults 60+ yrs) 05/14/2023 COVID-19 (PFIZER) Purple Cap Monovalent 08/03/19 21,07/13/2020 Fluad Quad 65+ 04/04/2021 Fluzone High-Dose 65+YRS 05/19/2024,04/09/2022,1 Fluzone High-Dose 65+yrs 04/12/2023 MMR 07/17/2019 Pneumococcal Conjugate 13-Valent (PCV13) 019 Pneumococcal Polysaccharide (PPSV23) 05/23/2020 Rabies, Intradermal 09/11/2002,08/21/2002,2002 Family History Medical History Relation Name Comments Cancer Brother 1 Peter prostate ca Prostate cancer Brother 1 Peter Cancer Brother 2 Cady prostate ca, me lanoma Melanoma Brother 2 Cady Prostate cancer Brother 2 Cady Skin cancer Brother 2 Cady Cancer Brother 3 Toby prostate ca Prostate cancer Brother 3 Toby Cancer Father Kendrick Glioblastoma Heart disease Maternal Grandfather Rheumatologic disease Maternal Grandmother Mirela Márquez dion Cancer Mother Francie MDS Hypertension Mother Francie Myelodysplastic syndrome Mother Francie Heart disease Paternal Grandfather Arthritis Sister 1 Kathe Breast cancer Sister 1 Kathe Cancer Sister 1 Kathe breast, colon c a Colon cancer Sister 1 Kathe Arthritis Sister 2 [place]ka Psoriasis Sister 2 [place] Psoriatic arthr itis Relation Name Status Comments Brother 1 Peter Alive Brother 2 Cady Alive Brother 3 Toby Alive Father Kendrick Glioblastoma Maternal Grandfather Maternal Grandmother Mirela Zhou Mother Francie Paternal Grandfather Paternal Grandmother Sister 1 Kathe Alive Sister 2 Waleska Alive Social History Tobacco Use Types Packs/Day Years Used Date Smoking Tobacco: Never Smokeless Tobacco: Never Tobacco Cessation:Counseling Given: Not Answered Alcohol Use Standard Drinks/Week Comments Yes 2 (1 standard drink = 0.6 oz pur e alcohol) every evening PHQ-2 Answer Date Recorded Retired PHQ-9: Brief Depression Severity Measure Score 0 04/12/2023 PHQ-2 Answer Date Recorded Patient Health Questionnaire-2 Score 0 11/17/2024 Comments Unknown Sex and Gender Information Value Date Recorded Sex Assigned at Not on file Legal Sex Female 4:24 PM EDT Gender Identity Not on file Sexual Orientation Not on file 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 file Not on fi le Last Filed Vital Signs Vital Sign Reading Time Taken Comments Blood Pressure 124/78 11/17/2024 9:01 AM EDT Pulse 76 11/17/2024 9:01 AM EDT Temperature 36.6 C (97.8 F) 11/17/2024 9:01 AM EDT Respiratory Rate 18 09/24/2023 8:33 AM EDT Oxygen Saturation 98% 11/17/2024 9:01 AM EDT Inhaled Oxygen Concentration - - Weight 67 kg (147 lb 12.8 oz) 11/17/2024 9:01 AM EDT Height 154.9 cm (5' 1 ) 11/17/2024 9:01 AM EDT Body Mass Index 27.93 11/17/2024 9:01 AM EDT Plan of Treatment Health Maintenance Due Date Last Done Comments TDAP/TD VACCINES (1 - Tdap) 1970 COLOGUARD 1996 COLON CANCER SCREENING 5 YEA R SIGMOIDOSCOPY 1996 [address] COLONOGRAPHY 1996 FECAL OCCULT BLOOD TEST 1996 FIT Testing (1 year) 1996 ZOSTER VACCINE (1 of 2) 2001 COVID-19 Vaccine (8 - Pfizer risk season) 2025 04/13/2024, 04/16/2023, 04/05/2022, Additional history exists DXA SCAN 04/22/2025 04/22/2023, 11/2022, 09/06/2020, Additional history exists ANNUAL WELLNESS VISIT 11/17/2025 11/17/2024 , 11/17/2024, 09/24/2023, Additional history exists MAMMOGRAM 08/07/2026 08/07/2024, 07/19, 08/05/2024, Additional history exists COLONOSCOPY 05/06/2029 05/06/2024, 04/18, 05/06/2024, Additional history exists COLORECTAL CANCER SCREENING 05/06/2029 Pneumococcal Vaccine 50+ Completed 05/23/2020, 03/18 HEPATITIS C SCREENING Completed 09/24/2023 INFLUENZA VACCINE Completed 03/12/2025, , 05/19/2024, Additional history exists Procedures Procedure Name Priority Date/Time Associated Diagnosis Comments MAMMO SCREENING MODIFIED RIGHT W CAD Routine 08/05/2024 Encounter for screening mammogram for malignant neoplasm of breast History of malignant neoplasm of breast SCANNED - COLONOSCOPY 05/06/2024 HEPATITIS C ANTIBODY Routine 09/24/2023 9:41 AM EDT Encounter for general adult medical examination with abnormal findings Need for hepatitis C screening test DEXA BONE DENSITY AXIAL Routine 04/22/2023 Postmenopausal from Last 3 Months or Most Recently Relevant to Health Maintenance Results * Mammo Screening Modified Right With CAD (08/05/2024) Anatomical Region Laterality Modality Breast Right Mammography us Kayden Ferrer MD IMG MAMMOGRAPHY ORDERABLES Fin al Result * Colonoscopy, Scan (05/06/2024) us Kayden Ferrer MD CHART REVIEW TABS Final Res ult * Hepatitis C Antibody (09/24/2023 9:41 AM EDT) Hep C Virus Ab Non Reactive Non Reactive [facility] Comment: HCV antibody alone does not differentiate between previously resolved infection and active infection. Equivocal and Reactive HCV antibody results should be followed up with an HCV RNA test to support the diagnosis of active HCV infection. Blood Structure of right upper limb / Unknown 09/24/2023 9:41 AM EDT 09/24/2023 Comment:Blood Release to [facility] yasmine Olivera [facility] [place] ([facility]) - 09/25/2023 8:09 AM EDT Performed at: [facility] [place] [id number] Chief Of Safety And Protection: Scott Maxwell PhD, Phone: [phone] us Kayden Ferrer MD LAB BLOOD ORDERABLES Final Res ult [facility] [place] [facility]) [address] [place] [address], [place] [phone] [facility] [address] [place] [address], [place] [phone] * DEXA Bone Density Axial (04/22/2023) Anatomical Region Laterality Modality Wrist, Hip, L-spine N/A Radiographic Imaging us Kayden Ferrer MD IMG DXA ORDERABLES Final Resul t from Last 3 Months or Most Recently Relevant to Health Maintenance Insurance MEDICARE A & B Member Subscriber Plan / Payer (Ef fective 2016-Present) Name:Rachel SHAW Member ID:[id number] Relation to Subscriber:Self Name:Rachel SHAW Subscriber ID:[id number] Payer ID:[id number] Group ID:Not on file Type:Not on file Address: [address] Care Teams Enthone Solder Stripper Relationship Specialty Start Date End Date Kayden Ferrer MD [address] [place] [address] [place] [address] PCP - General Internal Medicine 04/26/23
--- OUTSIDE RECORDS SUMMARY | 2025-06-11 13:04 | XMS_ITS | Encounter Summary ---
Author Organization [facility] Address [address] [place] [id number] Care Team Providers Care Camp Housekeeper Name Role Phone Kayden Ferrer MD Primary Care Provider [phone] Encounter Details Date Type Department Care Team (Late st Contact Info) Description 06/11/2025 Telephone [facility] [address] [place] [address] [place] [address] Kayden Ferrer MD [address] [place] [address] [place] [address] Social History Tobacco Use Types Packs/Day Years Used Date Smoking Tobacco: Never Smokeless Tobacco: Never Alcohol Use Standard Drinks/Week Comments Yes 2 [...] Not on file Not on fi le documented as of this encounter Miscellaneous Notes * Telephone Encounter - Juliette Aguilera RegSched Rep - 06/11/2025 9:37 AM EST LISA CALLED TO GET SAME DAY APPT DUE TO SICKNESS, UNABLE TO SCHEDULE SAME DAY APPT. PATIENT IS GOING TO URGENT CARE. documented in this encounter Plan of Treatment Not on file documented as of this encounter Visit Diagnoses Not on filedocumented in this encounter Care Teams Camp Housekeeper Relationship Specialty Start Date End Date Kayden Ferrer MD [address] [place] [address] PCP - General Internal Medicine 04/26/23 documented as of this encounter
--- OUTSIDE RECORDS SUMMARY | 2025-06-11 13:04 | XMS_ITS | Clinical Summary ---
Author Organization Healthcare Address [address] [place] [address] Care Team Providers Care Intensive Care Unit Registered Nurse Name Role Phone Jason Ferrer MD Primary Care Provider [phone] Jason Ferrer MD Unavailable [phone] Encounters Date Type Department Care Team Description 03/18/2025 Travel 03/18/2025 Orders Only [facility] [address] [place] [phone] Constantino Peralta MD Clinical trial participant (Primary Dx) from Last 3 Months Social History Tobacco Use Types Packs/Day Years Used Date Smoking Tobacco: Never Assessed Comments Unknown Sex and Gender Information Value Date Recorded Sex Assigned at Not on file Legal Sex Female 8:54 PM EDT Gender Identity Not on file Sexual Orientation Not on file Plan of Treatment Health Maintenance Due Date Last Done Comments [facility]-Bone Density Scan 1951 [facility]-Depression Screening 1951 [facility]-Hepatitis C Screening 1950 [facility]-/Child/Adol SDOH Screenings 1950 [facility]- SDOH Screenings 1969 [facility]-Adult SDOH Screenings 1969 [facility]-DTaP,Tdap,and Td Vaccines (1 - Tdap) 1970 CT Colonography 1996 Colonoscopy 1996 FIT-DNA 1996 FIT 1996 FOBT 1996 Sigmoidoscopy 1996 [facility]-Colorectal Cancer Screening 1996 [facility]-Breast Cancer Screening 2001 [facility]-Zoster Vaccines (1 of 2) 2001 [id number] Vaccine ( season) 2025 02/24/2025, 04/13/2024, 04/16/2023, Additional history exists [facility]-Pneumococcal Vaccine: 50+ Years Completed 05/23/2020, 04/14/2019 [facility]-RSV Vaccine: 60+ Years or Completed 05/14/2023 [facility]-Influenza Vaccine Completed 03/12/2025 , 05/19/2024, 04/12/2023, Additional history exists HPV Vaccines (No Doses Required) Completed [facility]-HIB Vaccines Aged Out No longer e ligible based on patient's age to complete this topic [facility]-Hepatitis A Vaccines Aged Out No longer eligible based on patient's age to complete this topic [facility]-IPV Vaccines Aged Out No longer e ligible based on patient's age to complete this topic [facility]-Rotavirus Vaccines Aged Out No lo nger eligible based on patient's age to complete this topic Procedures Procedure Name Priority Date/Time Associated Diagnosis Comments LIPID PROFILE, PLASMA Routine 03/18/2025 11:41 AM EDT Clinical trial participant HEMOGLOBIN A1C Routine 03/18/2025 11:41 AM EDT Clinical trial participant COMPREHENSIVE METABOLIC PANEL, PLASMA Routine 03/18/2025 11:41 AM EDT Clinical trial participant from Last 3 Months Results * Hemoglobin A1c (03/18/2025 11:41 AM EDT) Hemoglobin A1c 5.1 <5.7 % 03/18/2025 3:33 PM EDT [facility] Blood Venous blood specimen / Unknown Venipuncture / Unknown 03/18/2025 11:41 AM EDT 03/18/2025 11:53 AM EDT Narrative [facility] - 03/18/2025 3:33 PM EDT HA1C Interpretive Data: Diagnosis of Diabetes: Diabetic > or = 6.5% Pre-diabetic 5.7 to 6.4% Non-diabetic < or = 5.6% Glycemic Targets for Type I and Type II Diabetics: Non- Adults <7.0% Adults <6.0% Children and Adolescents <7.5% Source: [place] [employer]. Standards of medical care in diabetes,2017. Diabetes Care.2017:40 (suppl 1):S1-S135. us Constantino Peralta MD LAB BLOOD ORDERABLES Final Re sult [facility] [address] [place] [address] * (ABNORMAL) Lipid panel (03/18/2025 11:41 AM EDT) Cholesterol, Plasma 229(H) <200 mg/dL 03/18/2025 2:39 PM EDT [facility] Comment: Cholesterol Reference Range (age >17 years): Desirable <200 mg/dL Borderline 200 to 239 mg/dL Undesirable >239 mg/dL HDL 114 >=50 mg/dL 03/18/2025 2:39 PM EDT [facility] Comment: HDL Cholesterol Reference Ranges (age >17 years): Female, acceptable > or = 50 mg/dL Male, acceptable > or = 40 mg/dL Triglycerides, Plasma 47 <150 mg/dL 03/18/2025 2:39 PM EDT [facility] Comment: Triglyceride Reference Range (age >17 years): Desirable: <150 mg/dL Borderline high: 150 to 199 mg/dL High: 200 to 499 mg/dL Very high: >499 mg/dL Increased risk of pancreatitis: >1000 mg/dL Cholesterol/HDL Ratio 2 03/18/2025 2:39 PM EDT [facility] LDL, Calculated 107(H) <100 mg/dL 2:39 PM EDT [facility] Comment: LDL Cholesterol Reference Range (age >17 years): Optimal: <100 mg/dL Near or above optimal: 100 - 129 mg/dL Borderline high: 130 - 159 mg/dL High: 160 - 189 mg/dL Very high: >189 mg/dL LDL Cholesterol Reference Range (age <18 years): Desirable: <110 mg/dL Borderline: 110 - 129 mg/dL Undesirable: >130 mg/dL LDL Cholesterol is calculated using the Nuñez/NIH equation. Fasting greater than or equal to 12 hours? Yes 03/18/2025 2:39 PM EDT [facility] Blood Venous blood specimen / Unknown Venipuncture / Unknown 03/18/2025 11:41 AM EDT 03/18/2025 11:53 AM EDT us Constantino Peralta MD LAB BLOOD ORDERABLES Final Re sult [facility] [address] [place] [address] * Comprehensive metabolic panel (03/18/2025 11:41 AM EDT) Glucose, Plasma 93 74 - 99 mg/dL 03/18/2025 2:39 PM EDT [facility] BUN, Plasma 13 8 - 23 mg/dL 03/18/2025 2:39 PM EDT [facility] Creatinine, Plasma 0.60 0.60 - 1.10 mg/dL 03/18/2025 2:39 PM EDT [facility] BUN/Creatinine Ratio 22 03/18/2025 2:39 PM EDT [facility] Sodium, Plasma 138 136 - 145 mmol/L 03/18/2025 2:39 PM EDT [facility] Potassium, Plasma 4.4 3.6 - 4.9 mmol/L 03/18/2025 2:39 PM EDT [facility] Chloride, Plasma 103 97 - 107 mmol/L 03/18/2025 2:39 PM EDT [facility] CO2, Plasma 23 22 - 29 mmol/L 03/18/2025 2:39 PM EDT [facility] Anion Gap 12 6 - 16 mmol/L 03/18/2025 2:39 PM EDT [facility] Total Calcium, Plasma 9.3 8.9 - 10.2 mg/dL 03/18/2025 2:39 PM EDT [facility] Total Protein 7.1 6.3 - 7.9 g/dL 03/18/2025 2:39 PM EDT [facility] Albumin, Plasma 4.3 3.5 - 5.2 g/dL 03/18/2025 2:39 PM EDT [facility] AST, Plasma 25 10 - 35 U/L 03/18/2025 2:39 PM EDT [facility] ALT, Plasma 19 10 - 35 U/L 03/18/2025 2:39 PM EDT [facility] Alkaline Phosphatase, Plasma 75 46 - 142 U/L 03/18/2025 2:39 PM EDT [facility] Total Bilirubin, Plasma 0.5 0.2 - 1.1 mg/dL 03/18/2025 2:39 PM EDT [facility] eGFRcr 94.9 mL/min/1.7 3m*2 03/18/2025 2:39 PM EDT [facility] Comment:Reported eGFRcr in m L/min/1.73m2 is based the CKD-EPI 2020 equation that does not use a race coefficient. Blood Venous blood specimen / Unknown Venipuncture / Unknown 03/18/2025 11:41 AM EDT 03/18/2025 11:53 AM EDT us Constantino Peralta MD LAB BLOOD ORDERABLES Final Re sult [facility] [address] [place] [address] from Last 3 Months Care Teams Intensive Care Unit Registered Nurse Relationship Specialty Start Date End Date Jason Ferrer MD [address] [place] [id number] PCP - General 03/18/25 Jason Ferrer MD [address] [place] [address] 03/18/25
== END 2025-06-11 23:59 ==
LOC: RAD 13:02
PROVIDERS: PCP Internal Medicine; Visit Provider Nurse Practitioner
DX: R09.89 Other specified symptoms and signs involving the circulatory and respiratory systems (principal)
CPT/HCPCS: 71046